=== PATIENT | male | born 1975 | race Caucasian/White ===

== ENCOUNTER 2021-04-28 08:32 | Emergency (ER) | payer OTHER ==
[~2021-04-28] VITALS: Ht 175.3 cm; Wt 69.9 kg
--- NOTE | 2021-04-28 08:32 | NUR ---
PT BIBA FROM [facility] TAKEN TO ER BED 6.
[2021-04-28 08:49] VITALS: BP 122/76
--- NOTE | 2021-04-28 08:57 | NUR ---
45 Y/O MALE BIBA FROM [facility] PER EMT SENT BY NURSE "XR RESULT FOR LEFT KNEE". PT STATES HE IS NOT SURE WHY HE WAS SENT, DENIES SOB, DENIES PAIN, DENIES FEVER/CHILLS, DENIES SOB. PT BASELINE ON 2L NC SPO2 98%. PT IS A&OX4, GCS 15. PMH: PNA, DM, HTN, BIPOLAR, GTUBE (SEE CHART FOR EXTENSIVE) NKA
--- NOTE | 2021-04-28 10:05 | NUR ---
DR. TITUS IS AT BEDSIDE Addendum: 04/28/21 at 1012 by LUCILLE IS ATTEMPTING TO PLACE KNEE BACK IN CORRRECT POSITION.
--- NOTE | 2021-04-28 10:19 | NUR ---
PT REFUSED LABS, MADE AWARE.
--- NOTE | 2021-04-28 10:36 | NUR ---
PT TAKEN TO XR VIA [facility].
--- NOTE | 2021-04-28 10:52 | NUR ---
PT TAKEN TO ER BED 6 VIA [facility]US[facility].
[2021-04-28] MEDS ORDERED: DIAZEPAM PFS 10 MG/2 ML SYR IM ONE (11:45)
--- NOTE | 2021-04-28 12:50 | NUR ---
PATIENT WAS TAKEN FOR CT SCAN
--- NOTE | 2021-04-28 13:05 | NUR ---
PT TAKEN TO ER BED 6 VIA [facility]US[facility].
--- NOTE | 2021-04-28 13:26 | NUR ---
JACOB BECKMAN WALKED TO LAB AT THIS TIME.
--- NOTE | 2021-04-28 15:07 | NUR ---
PT REPOSITIONED IN BED, VSS, WILL CONTINUE TO MONITOR.
[2021-04-28] MEDS ORDERED: ACET-2619 PO (16:06)
--- NOTE | 2021-04-28 16:35 | NUR ---
CALLED PT SISTER SHE CAN NOT PICK HIM UP. PT SISTER MERE HENNING GAVE PERMISSION FOR TO GO BACK TO [facility] VIA [facility]. [facility] MADE AWARE.
--- NOTE | 2021-04-28 17:00 | NUR ---
GAVE REPORT TO JEFF RICHARDS IN [facility] FOR PENDING TRANSFER.
[2021-04-28 17:48] VITALS: BP 109/71
--- NOTE | 2021-04-28 17:50 | NUR ---
Patient discharged with [facility] v/s stable. Written and verbal after care instructions given and explained. Patient alert, oriented and verbalized understanding of instructions. Ambulatory with steady gait. All questions addressed prior to discharge. ID band removed. Patient advised to follow up with PMD. Rx of ACETAMINOPHEN given. Patient educated on indication of medication including possible reaction and side effects. Opportunity to ask questions provided and answered. PATIENT WAS TRANSPORTED VIA WHEELCHAIR TO [facility].
== END 2021-04-28 17:48 | disposition home or self-care (01) ==
LOC: MED 08:32
DX: S83.015A Lateral dislocation of left patella, initial encounter (principal); Z20.822 Contact with and (suspected) exposure to COVID-19; X58.XXXA Exposure to other specified factors, initial encounter; Y93.89 Activity, other specified; Y92.89 Other specified places as the place of occurrence of the external cause; Y99.8 Other external cause status
CPT/HCPCS: 27560; 73564; 73700; 87426; 96372; 99285; J3360